=== PATIENT | female | born 2000 ===

== ENCOUNTER 2018-10-26 16:47 | Emergency (ER) | payer MEDICAID ==
--- NOTE | 2018-10-26 18:23 | ED PDOC ---
Arrival/HPI - General Chief Complaint: Eye Problem Time Seen by Provider: 10/26/18 16:50 Historian: Patient - History of Present Illness Narrative History of Present Illness (Text): 10/26/18 18:45 18-year-old female presents today with right eye redness and swelling 3 days. pt states she has been applying warm compresses to the right eye. no fever/chills. no blurred vision. no dizziness or weakness. Patient states she felt a small lump and pustule on the upper eyelid and thought that she had a stye. no other complaints. Past Medical History - Provider Review Nursing Documentation Reviewed: Yes - Travel History Have you recently traveled outside [place] w/in the past 3 mons?: No - Psychiatric Hx Substance Use: No Family/Social History - Physician Review Nursing Documentation Reviewed: Yes Family/Social History: Unknown Family HX Smoking Status: Never Smoked Hx Alcohol Use: No Hx Substance Use: No Allergies/Home Meds Allergies/Adverse Reactions: Allergies No Known Allergies Allergy (Verified 10/26/18 16:54) Review of Systems - Review of Systems Constitutional: absent: Fatigue, Fevers Eyes: Other (stye right eye; swelling upper eyelid) ENT: absent: Sore Throat, Sinus Congestion Respiratory: absent: SOB, Cough Cardiovascular: absent: Chest Pain, Palpitations Gastrointestinal: absent: Abdominal Pain, Nausea, Vomiting Neurological: absent: Headache, Dizziness Psychiatric: absent: Anxiety, Depression Physical Exam Vital Signs Reviewed: Yes Vital Signs Temp Pulse Resp BP Pulse Ox 10/26/18 16:51 98.1 F 95 H 18 125/87 100 Temperature: Afebrile Blood Pressure: Normal Pulse: Regular Respiratory Rate: Normal Appearance: Positive for: Well-Appearing, Non-Toxic, Comfortable Pain Distress: None Mental Status: Positive for: Alert and Oriented X 3 - Systems Exam Head: Present: Atraumatic, Swelling (+ minimal swelling noted to right upper eyelid; + stye noted to lateral aspect of eye. ), Other (no periorbital tenderness. ) Pupils: Present: PERRL Extroacular Muscles: Present: EOMI Conjunctiva: Present: Normal Ears: Present: Normal Mouth: Present: Moist Mucous Membranes Pharnyx: Present: Normal Nose (External): Present: Atraumatic Neck: Present: Normal Range of Motion Respiratory/Chest: Present: Clear to Auscultation Cardiovascular: Present: Regular Rate and Rhythm Neurological: Present: GCS=15 Skin: Present: Warm, Dry, Normal Color Psychiatric: Present: Alert, Oriented x 3 Medical Decision Making ED Course and Treatment: 10/26/18 21:11 Patient is nontoxic well appearing in no distress Right minimal upper eyelid swelling. Stye noted to the lateral aspect of the upper eyelid. no Conjunctival injection noted, PERRLA, extraocular muscles intact Patient was advised to continue warm compresses apply antibiotics ointment and follow-up with the eye doctor within the next 2 days. Patient was advised immediate return if symptoms worsen persist or if new concerning symptoms develop Patient verbalizes understanding of discharge instructions and need for immediate followup. all aspects of this case were discussed the attending of record. Impression: Stye Tobrex: apply ointment to affected eye 4 times daily Followup with the eye doctor within the next 2 days Warm compresses Return immediately if symptoms worsen persist or if new symptoms develop; blurry vision, worsening eye pain, worsening redness or any other concerning symptoms develop. Follow up with the primary care physician within the next 2 days Disposition/Present on Arrival - Present on Arrival Any Indicators Present on Arrival: No History of DVT/PE: No History of Uncontrolled Diabetes: No Urinary Catheter: No History of Decub. Ulcer: No History Surgical Site Infection Following: None - Disposition Have Diagnosis and Disposition been Completed?: Yes Diagnosis: Hordeolum Disposition: HOME/ ROUTINE Disposition Time: 18:17 Patient Plan: Discharge Condition: GOOD Discharge Instructions (ExitCare): ye ([facility]de[facility]) Additional Instructions: Tobrex: apply ointment to affected eye 4 times daily Followup with the eye doctor within the next 2 days Warm compresses Return immediately if symptoms worsen persist or if new symptoms develop; blurry vision, worsening eye pain, worsening redness or any other concerning symptoms develop. Follow up with the primary care physician within the next 2 days Prescriptions: Tobramycin 0.3% [Tobrex 0.3% Ophth Oint] 1 appl OD TID #1 tube Referrals: Dm Amador MD [Staff Provider] - Follow up with primary Ana Cortes MD [Medical Doctor] - Follow up with primary Hospitalist Service [Outside] - Follow up with primary Forms: [facility] ([place] [place]), WORK NOTE
[2018-10-26 19:03] VITALS: BP 139/80; PULSE 83; RESP 16; TEMP 98.2; O2SAT 99
== END 2018-10-26 18:54 | disposition home or self-care (01) ==
LOC: ED 16:47
DX: H00.011 Hordeolum externum right upper eyelid (principal)